=== PATIENT | male | born 1960 | race Caucasian/White ===

== ENCOUNTER → 2020-10-05 11:11 | Outpatient (CLI) | payer BC, SELFPAY ==
--- NOTE | 2020-10-05 11:16 | DI.RAD.S_ITS ---
PROCEDURE: XR KNEE RT 3V INDICATIONS: bilateral hand, knee and hip pain TECHNIQUE: 3 views of the knee were acquired. COMPARISON: None. FINDINGS: Bones: No fractures or dislocations. No suspicious bony lesions. There is tricompartmental osteoarthritis, most severe and moderate at the patellofemoral joint. Soft tissues: No joint effusion. No suspicious soft tissue calcifications. IMPRESSION: Moderate osteoarthritis. Dictated by: Norman Shannon M.D. on 10/05/2020 at 13:29 Approved by: Norman Shannon M.D. on 10/05/2020 at 13:32
--- NOTE | 2020-10-05 11:16 | DI.RAD.S_ITS ---
PROCEDURE: XR KNEE LT 3V INDICATIONS: bilateral hand, knee and hip pain TECHNIQUE: 3 views of the knee were acquired. COMPARISON: None. FINDINGS: Bones: No fractures or dislocations. No suspicious bony lesions. No erosions or evidence of inflammatory arthropathy. Soft tissues: No joint effusion. No suspicious soft tissue calcifications. IMPRESSION: Normal left knee Dictated by: Tolu Moody M.D. on 10/05/2020 at 15:45 Approved by: Tolu Moody M.D. on 10/05/2020 at 15:47
--- NOTE | 2020-10-05 11:16 | DI.RAD.S_ITS ---
PROCEDURE: XR HAND LT MIN 3V INDICATIONS: bilateral hand, knee and hip pain TECHNIQUE: 3 views of the hand(s) acquired. COMPARISON: None. FINDINGS: Bones: No fractures or dislocations. Carpal bones are normally aligned. No suspicious bony lesions. Degenerative joint disease, [id number] at the 1st metacarpophalangeal joint, and mild at multiple interphalangeal joints. Soft tissues: No suspicious soft tissue calcifications. IMPRESSION: Vhbx-ss-ogxoscra osteoarthritis. Dictated by: Norman Shannon M.D. on 10/05/2020 at 14:00 Approved by: Norman Shannon M.D. on 10/05/2020 at 14:02
--- NOTE | 2020-10-05 11:16 | DI.RAD.S_ITS ---
PROCEDURE: XR HAND RT MIN 3V INDICATIONS: bilateral hand, knee and hip pain TECHNIQUE: 3 views of the hand(s) acquired. COMPARISON: None. FINDINGS: Bones: No fractures or dislocations. Carpal bones are normally aligned. No suspicious bony lesions. Mild osteoarthritic changes involving the 1st metacarpophalangeal joint and multiple interphalangeal joints. Soft tissues: No suspicious soft tissue calcifications. IMPRESSION: Mild osteoarthritis. Dictated by: Norman Shannon M.D. on 10/05/2020 at 13:32 Approved by: Norman Shannon M.D. on 10/05/2020 at 13:34
--- NOTE | 2020-10-05 11:16 | DI.RAD.S_ITS ---
PROCEDURE: XR HIP W PEL IF DONE MARIANNE MIN 4V INDICATIONS: bilateral hand, knee and hip pain TECHNIQUE: AP pelvis with lateral view(s) of the bilateral hip(s). COMPARISON: None. FINDINGS: Bones: No fractures or dislocations. Pelvic ring appears intact. No suspicious bony lesions. No erosions or evidence of inflammatory arthropathy. Soft tissues: The visualized bowel gas pattern is normal. No suspicious soft tissue calcifications. IMPRESSION: Normal pelvis and bilateral hips. Dictated by: Tolu Moody M.D. on 10/05/2020 at 15:44 Approved by: Tolu Moody M.D. on 10/05/2020 at 15:45
[2020-10-05 11:56] LABS: Add Manual Diff / Slide Review NO; Basophils Absolute Auto 0 /uL (0-100); Basophils Percent Auto 0.5 % (0-2); Eosinophils Absolute Auto 100 /uL (0-450); Eosinophils Percent Auto 1.3 % (2-4); Hematocrit 42.1 % (41-53); Hemoglobin 14.4 g/dL (13.5-17.5); Lymphocytes Absolute Auto 2000 /uL (1100-4500); Lymphocytes Percent Auto 29.3 % (25-40); Mean Corpuscular HGB Conc 34.1 % (30-36); Mean Corpuscular Hemoglobin 31.7 PG (26-34); Monocytes Absolute Auto 500 /uL (0-900); Monocytes Percent Auto 7.5 % (3-14); Neutrophils Absolute Auto 4300 /uL (1500-7000); Neutrophils Percent Auto 61.4 % (50-75); Platelet Count 224 X10^3/uL (150-400); Red Blood Cell Count 4.53 X10^6/uL (4.5-5.9); Red Cell Distribution Width 13.4 % (11.6-14.8)
[2020-10-05 12:12] LABS: Hemoglobin A1C% w Est Avg Glu 5.5 % (4.0-6.0)
[2020-10-05 12:13] LABS: Alanine Aminotransferase 19 IU/L (<50); Albumin 4.3 g/dL (3.5-5.0); Albumin Globulin Ratio 1.6 (1.0-2.8); Alkaline Phosphatase 42 U/L (38-126); Aspartate Aminotransferase 24 IU/L (17-59); BUN Creatinine Ratio 20.3 (6-22); Bilirubin Total 0.4 mg/dL (0.2-1.3); Blood Urea Nitrogen 16 mg/dL (9-20); C-Reactive Protein Quant 0.7 mg/dL (<1.0); Calcium 9.6 mg/dL (8.4-10.2); Carbon Dioxide 26 mmol/L (22-32); Chloride 107 mmol/L (98-107); Cholesterol 186 mg/dL (140-199); Estimated Glomerular Filt Rate > 60.0 mL/min (>60); Globulin 2.7 g/dL (1.7-4.1); Glucose 96 mg/dL (80-110); HDL Cholesterol 39 mg/dL (40-60); HEMOLYSIS < 15 (0-50); LDL Cholesterol Calculated 127 mg/dL (<100); Potassium 4.3 mmol/L (3.4-5.1); Sodium 140 mmol/L (137-145); Triglycerides 101 mg/dL (35-150)
[2020-10-05 12:19] LABS: Rheumatoid Factor < 8.6 IU/mL (<12.0)
[2020-10-05 12:26] LABS: Erythrocyte Sedimentation Rate 5 MM/HR (0-15)
[2020-10-05 12:38] LABS: TSH w/ Reflex to FT4 3.24 uIU/mL (0.47-4.68)
[2020-10-07 15:46] LABS: ANA Screen, IFA Negative (.)
== END ==
PROVIDERS: PCP Family Medicine; Referring Provider Family Medicine; Visit Provider Family Medicine
DX: M79.641 Pain in right hand (principal); M79.642 Pain in left hand; M25.562 Pain in left knee; M25.551 Pain in right hip; M25.552 Pain in left hip; M25.561 Pain in right knee; R63.4 Abnormal weight loss; T78.40XA Allergy, unspecified, initial encounter
CPT/HCPCS: 36415; 73130; 73522; 73562; 80053; 80061; 83036; 84443; 85025; 85651; 86038; 86140; 86430

== ENCOUNTER → 2020-11-13 11:49 | Outpatient (CLI) | payer BC, SELFPAY ==
--- NOTE | 2020-11-13 12:09 | DI.CT.S_ITS ---
PROCEDURE: CT CHEST WO CON INDICATIONS: Nicotine dependence, cigarettes, uncomplicated TECHNIQUE: Noncontrast 5 mm thick sections acquired from the pulmonary apices to the posterior costophrenic angles. 1 mm lung window, 5 mm thick coronal and sagittal and 7 mm axial MIP reformats were then acquired. For radiation dose reduction, the following was used: automated exposure control, adjustment of mA and/or kV according to patient size. COMPARISON: None. FINDINGS: Image quality: Excellent. Lungs and pleura: No acute air space opacities. No pleural effusions or pneumothorax. Central and peripheral airways are patent and normal in caliber. Mediastinum: Heart size is normal. No pericardial effusion. Mild to moderate coronary artery calcifications. No mediastinal adenopathy by size criteria. Thoracic aorta and central pulmonary arteries are normal in size. Esophagus is normal in caliber. No hiatal hernia. Bones and chest wall: No suspicious bony lesions. No vertebral body compression fractures. No axillary or supraclavicular adenopathy by size criteria. Thyroid gland is unremarkable . Abdomen: Visualized upper abdominal solid organs and bowel loops appear normal in the absence of contrast. IMPRESSION: 1. No findings suspicious for pulmonary malignancy. No evidence acute pulmonary process. 2. Mild to moderate coronary artery disease. Comment: If the patient has significant risk factors for bronchogenic carcinoma, consider yearly screening lung CT. Dictated by: Jesse Goode M.D. on 11/13/2020 at 13:58 Approved by: Jesse Goode M.D. on 11/13/2020 at 14:01
== END ==
PROVIDERS: PCP Family Medicine; Referring Provider Family Medicine; Visit Provider Family Medicine
DX: I25.10 Atherosclerotic heart disease of native coronary artery without angina pectoris (principal); F17.210 Nicotine dependence, cigarettes, uncomplicated
CPT/HCPCS: 71250; Q9967

== ENCOUNTER → 2020-12-09 17:24 | Outpatient (CLI) | payer OTHER, SELFPAY ==
--- NOTE | 2020-12-09 17:26 | DI.RAD.S_ITS ---
PROCEDURE: XR RIBS LT MIN 3V W CXR1V INDICATIONS: left lower lateral rib pain TECHNIQUE: 2 views of the left ribs were acquired, along with a single view chest. COMPARISON: [facility], CR, CHEST 2 VIEW, 05/05/2017, 13:45. [facility], CT, CT CHEST WO CON, 11/13/2020, 12:05. FINDINGS: Surgical changes and devices: None. Bones and chest wall: No fractures or dislocations. No suspicious bony lesions. Overlying soft tissues appear unremarkable. Lungs and pleura: No pleural effusions or pneumothorax. Lungs appear clear, yet appear hyperexpanded. Mediastinum: Mediastinal contours appear normal. Heart size is normal. IMPRESSION: No displaced fractures can be seen. No pneumothorax. Dictated by: Teddy Stark M.D. on 12/09/2020 at 16:56 Approved by: Teddy Stark M.D. on 12/09/2020 at 16:58
== END ==
PROVIDERS: PCP Family Medicine; Referring Provider Physician Assistant; Visit Provider Physician Assistant
DX: R07.89 Other chest pain (principal)
CPT/HCPCS: 71101

== ENCOUNTER → 2021-01-24 13:04 | Outpatient (CLI) | payer BC, SELFPAY ==
[2021-01-24 14:31] LABS: COVID19 -Nasal RAPID Negative (Negative)
== END ==
PROVIDERS: PCP Family Medicine; Visit Provider Surgery
DX: Z20.822 Contact with and (suspected) exposure to COVID-19 (principal); Z01.812 Encounter for preprocedural laboratory examination
CPT/HCPCS: 87635; C9803

== ENCOUNTER 2021-01-25 08:43 | Day surgery (SDC) | payer BC, SELFPAY ==
[2021-01-25] VITALS (9 sets, daily range): BP systolic 82–124; BP diastolic 49–72; PULSE 56–76; RESP 12–16; TEMP 36.1–36.3; O2SAT 93–100; BMI 20.3
--- NOTE | 2021-01-25 | PATH_ITS ---
[facility] Accession Number: [id number] . 01 Material submitted: . colon - DESCENDING COLON POLYP . 02 Diagnosis: Descending Colon, Polyp, Biopsy: Hyperplastic polyp. MRV 01/30/2021 1220 Local . 02 Electronically signed: . Debora Wells MD, Pathologist NPI- [id number] . 01 Gross description: . DESCENDING COLON POLYP: Received in formalin is 1 fragment(s) of poe, soft tissue measuring 0.5 x 0.3 x 0.2 cm submitted entirely in 1 cassette(s) /TRC 01/26/2021 1513 Local . 02 Pathologist provided ICD-10: K63.5 . 02 CPT . 628699 Performed at: 01 [facility] [address] [id number] MD Kraig Mendes MD Phone: [phone] Performed at: 02 [facility] [address] [place], [place] [id number] MD Debora Wells MD Phone: [phone]
[2021-01-25] MEDS: LACTATED RINGERS 1,000 ML 84 ML IV (09:32)
--- NOTE | 2021-01-25 09:53 | PM.HP.1 ---
History of Present Illness History of Present Illness Date Patient Seen: 01/25/21 Time Patient Seen: 09:54 Chief complaint: SCREENING COLONOSCOPY Narrative: Rauol is here for a screening colonoscopy. He has never had 1 before. He has never had any type of colon cancer screening in the past. He denies any changes in his bowel habits or rectal bleeding. He has no known family history of colon cancer. Patient History Medical History Bilateral hand pain Bilateral knee pain Chest wall pain Chronic back pain Hip pain, bilateral Hyperlipidemia Osteoarthritis of right knee Rib contusion Smoking greater than 40 pack years Comment: Prior hernia repair Family & Social History Social History: household members family Tobacco & Substance use: Tobacco type cigarettes Smoking Status Current every day smoker alcohol intake never Substance Use Type does not use Meds Home Medications and Allergies Home Medications Medication Instructions Recorded Confirmed Type atorvastatin 40 mg tablet (Lipitor) 40 mg PO BEDTIME #90 tab 11/17/20 12/09/20 Rx sodium,potassium,mag sulfates 17.5 See Rx Instructions PO .COMPLEX 01/11/21 Rx gram-3.13 gram-1.6 gram oral soln #354 ml (Suprep Bowel Prep Kit) atorvastatin 40 mg tablet mg 01/25/21 History Allergies Allergy/AdvReac Type Severity Reaction Status Date / Time No Known Drug Allergies Allergy Verified 01/25/21 09:32 Exam Vital Signs (past 8 hours): - 01/25/21 09:02 Temperature 97.1 F L Pulse Rate 76 Respiratory Rate 14 Blood Pressure 124/72 Pulse Oximetry 100 Oxygen Delivery Method Room Air Const General: No acute distress Nutritional Appearance: average body habitus Orientation: alert, awake and oriented x3 HENMT Head: atraumatic Eyes Alignment and Position: alignment normal Sclera: sclerae normal Neck Neck: normal visual inspection Resp Effort & Inspection: normal respiratory effort Cardio Rate: regular rate GI Palpation: soft Skin General: no rashes or lesions noted Neuro Cognition: normal cognition Speech: speech normal Sensory Exam: no sensory deficits noted Assessment & Plan Assessment and plan (1) Colon cancer screening: Status: Acute Plan: Plan for colonoscopy. Risks and benefits were reviewed and he would like to proceed. Time Spent With Patient Critical Care time: I spent a total of [] minutes of critical care time on this patient's care today; this time is exclusive of procedural time.
[2021-01-25] MEDS: fentaNYL 250 MCG/5 ML INJ IV (10:22)
[2021-01-25] MEDS: MIDAZOLAM 5 MG/5 ML VIAL IV (10:22)
--- NOTE | 2021-01-25 10:38 | PM.OP.COLON ---
Operative Date/Time/Diagnoses Date of procedure: 01/25/21 Time of procedure: 10:38 Pre-op diagnosis: Colon cancer screening Post-op diagnosis: same Procedure & Clinicians Study performed: Colonoscopy Same procedure as scheduled: Yes Indications: Colon cancer screening Surgeon: Blake Augustine Procedure Notes SCOAP/Timeout: Yes Procedure in detail: The patient was brought to the endoscopy suite, placed in left lateral decubitus position. The patient was connected to monitoring devices. A time-out was performed. Sedation was administered. Once the patient was adequately sedated, a digital rectal exam was performed and was normal. The scope was then inserted and advanced to the cecum where the appendiceal orifice was identified and photographed. The scope was then slowly withdrawn over greater than 6 minutes. Mucosa was thoroughly inspected. There were rare scattered diverticula in left colon. There was a small polyp, roughly 5 mm in descending colon and was removed with cold Jumbo snare. The scope was retroflexed in the rectum. No abnormality was noted. The scope was straightened and removed. The patient was awakened and brought to recovery. EBL: 5 mL Findings: Says scattered, rare diverticula in the left colon and a single 5 mm polyp in the descending colon. Total of 10 mg of Versed and 225 micro g of fentanyl were administered. Scope withdrawal time: 8 minutes Sedation minutes: 36 Findings: divertiulosis and polyp(s) Complications: none Post-procedure Recommendations: Will call with biopsy results Disposition: PACU
--- NOTE | 2021-01-25 11:51 | SUR.PHASEII ---
Pt transported to hosp entrance for d/c. Pt vomited approx 100 ml clear liquid. Pt also tolerated approx 100 ml clear liquid intake 30 min prior. Cool cloth to face, deep breathing, aromatherapy initiated with good results. Pt able to transport to [facility] entrance for d/c in stable condition. Ride/family made aware to monitor for repeat nausea and vomiting and given instructions and verbalized understanding.
== END 2021-01-25 11:53 | disposition home or self-care (01) ==
PROVIDERS: PCP Family Medicine; Referring Provider Surgery; Visit Provider Surgery
PROC: 0DJD8ZZ Inspection of Lower Intestinal Tract, Via Natural or Artificial Opening Endoscopic (ICD-10-PCS; CPT 45378; principal; 2021-01-25 09:45)
DX: Z12.11 Encounter for screening for malignant neoplasm of colon (principal); F17.210 Nicotine dependence, cigarettes, uncomplicated; K57.30 Diverticulosis of large intestine without perforation or abscess without bleeding; K63.5 Polyp of colon
CPT/HCPCS: 45385; 99152; 99153; J2250; J3010

== ENCOUNTER → 2021-10-09 17:04 | Outpatient (CLI) | payer BC, SELFPAY ==
--- NOTE | 2021-10-09 17:08 | DI.RAD.S_ITS ---
PROCEDURE: XR KNEE RT 3V INDICATIONS: knee pain TECHNIQUE: 3 views of the knee were acquired. COMPARISON: [facility], CR, XR KNEE RT 3V, 10/05/2020, 11:35. [facility], CR, XR KNEE LT 3V, 10/05/2020, 11:35. FINDINGS: Bones: No fractures or dislocations. No suspicious bony lesions. Stable appearance of moderate tricompartmental osteoarthrosis of the right knee. Findings are most pronounced in the patellofemoral compartment. Soft tissues: No substantial joint effusion. No suspicious soft tissue calcifications. IMPRESSION: Right knee without acute fracture or malalignment. Moderate tricompartmental right knee osteoarthrosis most pronounced in the patellofemoral compartment. Dictated by: Roger Tellez M.D. on 10/10/2021 at 9:38 Approved by: Roger Tellez M.D. on 10/10/2021 at 9:40
--- NOTE | 2021-10-09 17:08 | DI.RAD.S_ITS ---
PROCEDURE: XR HIP W PEL IF DONE RT 2V INDICATIONS: hip pain TECHNIQUE: AP pelvis with lateral view(s) of the right hip(s). COMPARISON: [facility], CR, XR HIP W PEL IF DONE MARIANNE 3TO4V, 10/05/2020, 11:35. FINDINGS: Bones: No acute fractures or dislocations. Pelvic ring appears intact. No suspicious bony lesions. Mild degenerative changes of the bilateral hip. There is prominence of the superolateral acetabular rim, more pronounced on the left. Soft tissues: The visualized bowel gas pattern is normal. No suspicious soft tissue calcifications. IMPRESSION: Right hip without acute fracture or malalignment. Mild degenerative changes of the right femoroacetabular joint. Dictated by: Roger Tellez M.D. on 10/10/2021 at 9:37 Approved by: Roger Tellez M.D. on 10/10/2021 at 9:38
== END ==
PROVIDERS: PCP Family Medicine; Referring Provider Physician Assistant; Visit Provider Physician Assistant
DX: M17.11 Unilateral primary osteoarthritis, right knee (principal); M25.561 Pain in right knee; M25.551 Pain in right hip
CPT/HCPCS: 73502; 73562